=== PATIENT | male | born 1955 | race Caucasian/White ===

== ENCOUNTER 2018-06-20 19:27 | Inpatient (IN) ==
[~2018-06-20 19:27] MED LIST: Iohexol 350 MG/ML 100 ML Vial (for Cath Lab) IVCONTRAST ONE; Iohexol 350 MG/ML 50 ML Vial (for Cath Lab) IVCONTRAST ONE
[2018-06-20] MEDS ORDERED: Heparin 10,000 UNITS/10 ML Vial (for IV use) IV.PUSH STA (19:41)
[2018-06-20] MEDS ORDERED: Morphine Inj 4 MG/ML Vial IV.PUSH ONE ×2 (19:44→20:07)
[2018-06-20] MEDS ORDERED: Sod Chloride 0.9% Inj 1,000 ML IV.SIG SCH (19:45)
--- NOTE | 2018-06-20 19:49 | ED ---
HPI General Chief Complaint: Chest Pain Stated Complaint: Chest pain/Cardiac Time Seen by Provider: 06/20/18 19:39 Source: patient Mode of arrival: ambulatory Limitations: no limitations History of Present Illness MD complaint: chest pain STEMI Alert: Yes Onset (ago): hour(s) (1) Time: 18:45 Duration: constant Onset: during rest Pain location: substernal Severity: moderate Severity scale (1-10): 10 Quality: sharp Pain radiation: none Relieving factors: nothing Exacerbating factors: nothing Context: other (CP about a week ago evaluated at an outside hospital) Associated symptoms: other (none) Treatments prior to arrival chest pain: other (Tylenol and Lortab) Related Data Allergies Allergy/AdvReac Type Severity Reaction Status Date / Time No Known Allergies Allergy Verified 06/20/18 19:44 Review of Systems ROS: all other systems reviewed are negative [facility] Medical History Medical History Rotator cuff disorder (Acute) Surgical History Surgical History H/O cervical spine surgery (Acute) Social History Social History Substance History: No History of Abuse Second Hand Smoke Exposure: No Smoking Status: Never smoker How Often Do You Have a Drink Containing Alcohol: 2 to 4 times a month Recent Travel in [facility] within the Last 8 Weeks: No Recent Out of Country Travel within the Last 8 Weeks: No Immunization History Tetanus Immunization: Unsure Hx Influenza Vaccine This Season: No Exam Const General: cooperative, healthy appearing and comfortable Orientation: alert, awake and oriented x3 HENMT Head: normal to inspection, normocephalic and atraumatic Eyes General: appearance normal, both eyes and all related structures Conjunctivae: conjunctivae normal Sclera: sclerae normal EOM: EOM intact bilaterally Neck Neck: normal visual inspection and full ROM Chest Chest: normal inspection of the chest Resp Effort & Inspection: normal respiratory effort and able to speak in complete sentences Auscultation: clear to auscultation bilaterally Cardio Rate: regular rate Rhythm: regular rhythm Heart Sounds: S1 normal and S2 normal GI Inspection: normal to inspection Palpation: soft Back/Spine/Pelvis Cervical Spine: cervical ROM normal Thoracic/Lumbar Spine: thoraco-lumbar ROM normal Skin General: no rashes or lesions noted, turgor normal and dry skin Neuro General: alert, awake, oriented x3, moves all extremities and CN's II-XI intact bilaterally Extrem General: normal to inspection, full ROM and no pedal edema Psych Appearance: grossly normal Mental Status: mental status grossly normal Speech and Movement: speech and movement normal Mood: congruent mood Affect: normal affect Attitude: cooperative Thought Process: normal Thought Content: normal Judgment: judgment good Course Consultations Consultation #1: Dr. Keys will meet him in the director of cardiac cath lab Time: 19:47 Initial Documented Vital Signs Temperature 98 F 06/20/18 19:38 Pulse Rate 112 H 06/20/18 19:38 Respiratory Rate 18 06/20/18 19:38 Blood Pressure 184/110 H 06/20/18 19:38 Pulse Oximetry 100 06/20/18 19:38 Last Documented Vital Signs Temperature 98 F 06/20/18 19:38 Pulse Rate 107 H 06/20/18 20:04 Respiratory Rate 18 06/20/18 20:04 Blood Pressure 183/108 H 06/20/18 20:04 Pulse Oximetry 98 06/20/18 20:04 Critical Care Time Critical Care Time: Yes Total Critical Care Time: 30 Attestation: Time to perform other separately billable procedures was not included in the critical care time. My time did not include minutes spent treating any other patients simultaneously or on activities that did not directly contribute to the patient's treatment. The services I provided to this patient were to treat and/or prevent clinically significant deterioration due to I provided critical care services requiring my management, as noted below: Chart data review, documentation time, medication orders and management, vital sign assessments/reviewing monitor data, ordering and reviewing lab tests, ordering and interpreting/reviewing x-rays and diagnostic studies, care of the patient and discussion of the patient with the admitting physicians Quality Measure Queries AMI Clinical Trial Participant: No ECG initial impression date: 06/20/18 ECG initial impression time: 19:35 Medical Decision Making MDM Narrative Medical decision making narrative: This patient presents with chief complaint of chest pain which started 1 hour ago. Chest pain is substernal. He denies any associated symptoms. He states that he has taken Tylenol and a Lortab with no relief of his symptoms. He states that he was seen at an outside hospital about a week ago for chest pain. He had a negative initial workup and was discharged home. He denies any chronic medical history such as hypertension or hyperlipidemia. He states that he is a non-smoker. He denies the use of illicit drugs. His initial EKG shows an inferior VA. A STEMI alert was called. He will be taken emergently to the [facility]. He is being treated in the emergency department with aspirin, heparin and morphine. Since this is an inferior VA, nitroglycerin is being withheld. I will defer a beta-eliseo to Dr. Keys. Medical Screen Exam Complete: Yes Emergency Medical Condition: Yes Differential Diagnosis Differential Diagnosis: Differential diagnosis of chest pain includes but is not limited to musculoskeletal pain, pulmonary embolism, acute coronary syndrome , pneumonia, pleurisy Lab Data Lab results reviewed: Yes I reviewed the patient's lab results. Result diagrams: 06/20/18 19:40 Lab Results 06/20/18 06/20/18 06/20/18 Range/Units 19:40 19:40 19:40 WBC 11.5 H (4.0-11.0) th/mm3 RBC 5.62 (4.50-5.90) mil/mm3 Hgb 17.1 H (13.0-17.0) gm/dL POC Hgb (Calc) 17.3 H (13.0-17.0) g/dL Hct 51.0 (39.0-51.0) % POC Hct 51.0 (39-51.0) % MCV 90.7 (80.0-100.0) fL MCH 30.4 (27.0-34.0) pg MCHC 33.5 (32.0-36.0) % RDW 13.4 (11.6-17.2) % Plt Count 251 (150-450) th/mm3 MPV 8.5 (7.0-11.0) fL Neut % (Auto) 64.9 (16.0-70.0) % Lymph % (Auto) 22.6 (9.0-44.0) % Citrus % (Auto) 9.7 H (0.0-8.0) % Eos % (Auto) 2.3 (0.0-4.0) % Baso % (Auto) 0.5 (0.0-2.0) % Neut # (Auto) 7.5 (1.8-7.7) th/mm3 Lymph # (Auto) 2.6 (1.0-4.8) th/mm3 Citrus # (Auto) 1.1 H (0.0-0.9) th/mm3 Eos # (Auto) 0.3 (0.0-0.4) th/mm3 Baso # (Auto) 0.1 (0.0-0.2) th/mm3 WBC Differential . Differential Comment Auto diff final PT 10.0 (9.8-11.6) sec INR 1.0 Ratio APTT 26.9 (24.3-30.1) sec POC Sodium 142 (137-144) mmol/L POC Potassium 3.6 (3.6-5.0) mmol/L POC Chloride 102 (102-111) mmol/L POC BUN 12 (5-21) mg/dL POC Creatinine 0.9 (0.6-1.3) mg/dL POC Glucose 123 H (68-110) mg/dL Calcium 8.6 (8.5-10.1) mg/dL Magnesium 2.0 (1.5-2.5) mg/dL B-Natriuretic Peptide (0-100) pg/mL 06/20/18 Range/Units 19:40 WBC (4.0-11.0) th/mm3 RBC (4.50-5.90) mil/mm3 Hgb (13.0-17.0) gm/dL POC Hgb (Calc) (13.0-17.0) g/dL Hct (39.0-51.0) % POC Hct (39-51.0) % MCV (80.0-100.0) fL MCH (27.0-34.0) pg MCHC (32.0-36.0) % RDW (11.6-17.2) % Plt Count (150-450) th/mm3 MPV (7.0-11.0) fL Neut % (Auto) (16.0-70.0) % Lymph % (Auto) (9.0-44.0) % Citrus % (Auto) (0.0-8.0) % Eos % (Auto) (0.0-4.0) % Baso % (Auto) (0.0-2.0) % Neut # (Auto) (1.8-7.7) th/mm3 Lymph # (Auto) (1.0-4.8) th/mm3 Citrus # (Auto) (0.0-0.9) th/mm3 Eos # (Auto) (0.0-0.4) th/mm3 Baso # (Auto) (0.0-0.2) th/mm3 WBC Differential Differential Comment PT (9.8-11.6) sec INR Ratio APTT (24.3-30.1) sec POC Sodium (137-144) mmol/L POC Potassium (3.6-5.0) mmol/L POC Chloride (102-111) mmol/L POC BUN (5-21) mg/dL POC Creatinine (0.6-1.3) mg/dL POC Glucose (68-110) mg/dL Calcium (8.5-10.1) mg/dL Magnesium (1.5-2.5) mg/dL B-Natriuretic Peptide 38 (0-100) pg/mL Imaging Data Radiologist's impression: Chest X-Ray 06/20/18 19:41 CONCLUSION: Question of mild perivascular pulmonary venous congestion. ECG Data EKG Prior to Arrival: No Attestation: I personally reviewed and interpreted this ECG as follows: (NSR. rate 72. inferior STEMI.) Discharge Plan Discharge Disposition Patient Disposition: 30 Still Patient Discharge Details Diagnosis: Acute inferior myocardial infarction Physicians Team ED Provider: Leslie Braden Primary Care Provider: UNKNOWN, Discharge Instructions Patient Printed Instructions: Chest Pain (ED) Status ED Status: With Doctor
[2018-06-20 20:05] LABS: Baso # (Auto) 0.1 th/mm3 (0.0-0.2); Baso % (Auto) 0.5 % (0.0-2.0); Eos # (Auto) 0.3 th/mm3 (0.0-0.4); Eos % (Auto) 2.3 % (0.0-4.0); Hemoglobin 17.1 gm/dL (13.0-17.0); Lymph # (Auto) 2.6 th/mm3 (1.0-4.8); Lymph % (Auto) 22.6 % (9.0-44.0); Mean Corpuscular HGB Conc 33.5 % (32.0-36.0); Mean Corpuscular Hemoglobin 30.4 pg (27.0-34.0); Mean Corpuscular Volume 90.7 fL (80.0-100.0); Mean Platelet Volume 8.5 fL (7.0-11.0); Mono # (Auto) 1.1 th/mm3 (0.0-0.9); Mono % (Auto) 9.7 % (0.0-8.0); Neut # (Auto) 7.5 th/mm3 (1.8-7.7); Neut % (Auto) 64.9 % (16.0-70.0); Platelet Count 251 th/mm3 (150-450); Red Blood Count 5.62 mil/mm3 (4.50-5.90); Red Cell Distribution Width 13.4 % (11.6-17.2); White Blood Count 11.5 th/mm3 (4.0-11.0)
--- NOTE | 2018-06-20 20:07 | XR ---
EXAM DATE: 06/20/2018 7:52 PM EDT AGE/SEX: 62 years / Male INDICATIONS: Chest pain; stemi alert. CLINICAL DATA: This is the patient's initial encounter. Patient reports that signs and symptoms have been present for 1 day and indicates a pain score of 10/10. MEDICAL/SURGICAL HISTORY: None. None. COMPARISON: . FINDINGS: The lungs are clear without infiltrate, nodule, or mass. There is no appreciable pleural effusion for technique. Heart and mediastinum are unremarkable. Question of mild perivascular pulmo nary venous congestion. CONCLUSION: Question of mild perivascular pulmonary venous congestion. Electronically signed by: Chaya Duarte MD 06/20/2018 8:05 PM EDT
[2018-06-20] MEDS ORDERED: Heparin 10,000 UNITS/10 ML Vial (for IV use) ONE (20:13)
[2018-06-20] MEDS ORDERED: Heparin/NS PF Inj 1,000 ML ONE (20:13)
[2018-06-20 20:15] LABS: Activated Partial Thrombo Time 26.9 sec (24.3-30.1)
[2018-06-20 20:16] LABS: Calcium 8.6 mg/dL (8.5-10.1)
[2018-06-20 20:24] LABS: Creatine Kinase 248 U/L (39-308)
[2018-06-20] MEDS ORDERED: fentaNYL Citrate Inj 100 MCG/2 ML Ampul ONE (20:27)
[2018-06-20] MEDS ORDERED: Tirofiban Inj 12,500 MCG/250 ML PLAST..BAG ONE (21:02)
[2018-06-20] MEDS ORDERED: Atropine Inj 1 MG/10 ML Syringe ONE (21:04)
--- NOTE | 2018-06-20 21:29 | CATHPROC ---
[email or web address] HIS Report Study Information Study Number Admission Scheduled Start Study Start [id number] Jun 20 2018 7:27PM 06/20/2018 Jun 20 2018 8:10PM [facility] Cardiac Catheterization Admit Source Facility Department Emergency department [facility] - Vacuum Frame Operator Physician and Clinical Staff Initial Rodger Padilla RN, Gertrudis Hernandez RN Recorder Angela Cardoza,RT(R) Scrub Patsy Ross,VANE TECH2 Procedures Performed Procedure Location (Site) Vessel Name Coronary Angiograms LCA Left Coronary Coronary Angiograms RCA Right Coronary L Heart Cath LV Gram-hand inj. LV LV Ventricle Stent RCA Dist Right Coronary Wire insertion Fem Art (right) Femoral Art Equipment Time Glove Stitcher Description Size Mfg Part Number Used/Scraped [id number] 20:56 [employer] WIRE, ASAHI PROWATER 180CM 180CM Used *[id number] TRANSDUCER, TRUWAVE [id number] 20:15 WALKER ZAPATA * Used W/STOCKCOCK *[id number] *[id number] *[id number] *[id number] 20:15 Codefast BLANKET,WARM AIR CCL * Used *[id number] 20:15 Codefast PACK, CCL CUSTOM * Used *[id number] 20:15 Ornis PACER PEN, SKIN DUAL W/ RULER * Used *[id number] 21:02 MEDTRONIC STENT, 3.5 12 INTEGRITY 3.5 12 Used *[id number] 20:32 Aliveshoes MEDICAL 30 APRIL INDEFLATOR Used *[id number] 20:32 Aliveshoes MEDICAL SHEATH, FR6.5 PRELUDE 11CM FR 6.5 038ACT Used *[id number] 20:15 Aliveshoes MEDICAL WIRE, 3MMJ .035 180CM 180CM Used *[id number] 20:15 NAMIC MANIFOLD, 4 PORT * Used *[id number] 20:15 NYCOMED OMNIPAQUE, 350 MG, 150ML 150ML [id number] Used Equipment Model, Serial, Lot Number and Expiration Data Description Model Number Serial Number Lot Number Expiration Date STENT, 3.5 12 INTEGRITY [id number] 11-10-2018 History: Allergies Allergy Reaction No Known Allergies History: Symptoms/Diagnosis Selection Items Chest pain History: Stress Tests Stress or Imaging Studies Performed No History: Other Current Smoker No Labs Hgb (g/dl) Hct (%) WBC (l/cumm) Platelets (thousands) 11.60-17.00 35.00-51.00 4.00-11.00 150.00-450.00 17.1 51 11.5 251 Glucose (mg/dl) BUN (mg/dl) Creatinine (mg/dl) BUN:Creatinine (1:x) 74.00-106.00 7.00-18.00 0.50-1.30 10.00-20.00 123 12 0.6 20 Na (meq/l) K (meq/l) 136.00-145.00 3.50-5.10 142 3.6 Medication Medication Total Dose (Bolus/Oral) Medication Total Dosage/Unit 1% XYLOCAINE 20 mL AGGRASTAT BOLUS 46 mL ATROPINE 1 mg EFFIENT 60 mg FENTANYL 75 mcg HEPARIN 6000 units VERSED 2 mg Medications (Bolus/Oral) Medication Time Given Dosage/Unit Administered By Reason VERSED 06/20/2018 8:50:46 PM 1 mg Hebert Lucas RN 1 mg VERSED given in lab by Hebert Lucas RN in Right Antecubital via Peripheral IV. Ordered by Rodger Medellin. FENTANYL 06/20/2018 8:51:20 PM 25 mcg Hebert Lucas RN 25 mcg FENTANYL given in lab by Hebert Lucas RN in Right Antecubital via Peripheral IV. Ordered by Rodger Valdivia. 1% XYLOCAINE 06/20/2018 8:55:06 PM 20 mL Rodger Keys 20 mL 1% XYLOCAINE given in lab by Rodger Keys in Right Groin via Subcutaneous. FENTANYL 06/20/2018 8:56:32 PM 25 mcg Yasmin Leoneinda 25 mcg FENTANYL given in lab by Gertrudis Leone RN in Right Antecubital via Peripheral IV. Ordered by Rodger Keys. VERSED 06/20/2018 8:56:59 PM 1 mg Vasu, Gertrudis 1 mg VERSED given in lab by Gertrudis Leone RN in Right Antecubital via Peripheral IV. Ordered by Rodger Sanches. HEPARIN 06/20/2018 9:00:33 PM 6000 units Hebert Lucas RN 6000 units HEPARIN given in lab by Hebert Lucas RN in Right Antecubital via Peripheral IV. Ordered by Rodger Keys. ATROPINE 06/20/2018 9:03:29 PM 1 mg Hebert Lucas RN 1 mg ATROPINE given in lab by Hebert Lucas RN in Right Antecubital via Peripheral IV. Ordered by Rodger Alberto. AGGRASTAT BOLUS 06/20/2018 9:14:14 PM 46 mL Hebert Lucas RN 46 mL AGGRASTAT BOLUS given in lab by Hebert Lucas RN in Right Antecubital via Peripheral IV. Ordered by Rodger Keys. FENTANYL 06/20/2018 9:15:22 PM 25 mcg Gertrudis Leone 25 mcg FENTANYL given in lab by Gertrudis Leone RN in Right Antecubital via Peripheral IV. Ordered by Rodger Keys. EFFIENT 06/20/2018 9:16:05 PM 60 mg Hebert Lucas RN 60 mg EFFIENT given in lab by Hebert Lucas RN via Oral. Ordered by Rodger Keys. Medication (Drip) Medication Time Given Dosage/Unit Concentration/Unit Diluent (ml) Solution AGGRASTAT DRIP 06/20/2018 9:19:29 PM 0.15 mcg/kg/min 12.5 mg 250 NaCl .9 0.15 mcg/kg/min AGGRASTAT DRIP given in lab by Hebert Lucas RN in Right Antecubital via Peripheral IV . Pump/Drip Flow = 16.7 ml/hr using NaCl .9 with a concentration of 12.5 mg in 250 ml. Ordered by Rodger Keys. IV Solutions 06/20/2018 8:16:56 PM 50 mL (IV) NaCl .9 IV Solutions given in lab by Hebert Lucas RN in Right Antecubital via Peripheral IV. Pump/Drip Flow u sing NaCl .9. Initial Case Assessment Cardiovascular Chest Pain 6 Edema Present Skin color Skin None Normal Warm Dry Circulatory - Right Pulses Dorsalis Pedis Femoral 1 2 Scale (0,1,2,3,4,d) Circulatory - Left Pulses Dorsalis Pedis Femoral 1 2 Scale (0,1,2,3,4,d) Neurological State Oriented to time-place- Alert Moves all extremities person Chronological Log Time Study Chronological Log 20:10:55 Emergency Room notified that Vacuum Frame Operator is ready. 20:16:25 Patient arrived via Bed. 20:16:27 Patient Name, D.O.B, / Armband Verified By R.N. 20:16:29 Consent signed by the physician and the patient and verified by the Vacuum Frame Operator staff. 20:16:31 Pre-op and post- op instructions given; patient acknowledges understanding of instruction s. 20:16:41 Presedation assessment performed by Vacuum Frame Operator RN. 20:16:48 Patient has been NPO for Less than 6Hrs. 20:16:48 Skin Breakdown- none per pt 20:16:49 Patient Warmer Placed on the Table. 20:16:50 Disposable Defibrillator Pads Placed On Patient. 20:16:54 Vickie Prominences Protected 20:16:54 A # 20 IV was noted in the Antecubital (left). Grade = 0 20:16:55 A # 20 IV was noted in the Antecubital (right). Grade = 0 20:16:56 IV Solutions given in lab by Lance GANNON, Hebert in Right Antecubital via Peripheral IV. Pump /Drip Flow using NaCl .9. 20:16:59 History and physical on the chart or being dictated. Assessment: Initial Case, Chest Pain=6, Edema=None, Color=Normal, Skin = Warm, Dry Right Pulses: Mike Ped=1, Femoral=2 20:16:59 Left Pulses: Mike Ped=1, Femoral=2 Neurological: State=Alert, Ox3, HORN Vitals capture started with the following parameters, Patient=Adult, Interval=5 min, Initial Pr kkujbn=635 mmHg, 20:20:24 Deflation Rate=5 mmHg, Cuff placed on Left Arm 20:22:18 OJ=387 bpm, QOMP=648/106 mmhg, UwX3=830 %, Resp=26 B/min 20:26:09 OP=933 bpm, UDGG=932/126 mmhg, SpO2=99.0 %, Resp=15 B/min 20:27:15 Bilateral groins prepped with 2% chlorhexidine, and draped after a 3 minute waiting time. 20:28:53 paged 20:29:13 MD responded 20:31:00 Pressure channel 1 zeroed. 20:31:08 SQ=243 bpm, VLEN=105/117 mmhg, ByP6=396.0 %, Resp=15 B/min 20:32:48 Reference ECG taken 20:36:10 QL=163 bpm, ISKW=315/116 mmhg, SpO2=99.0 %, Resp=11 B/min 20:41:09 PR=989 bpm, SRSX=493/111 mmhg, SpO2=99.0 %, Resp=10 B/min 20:42:50 NIBP STAT measurement started. 20:43:34 HR=61 bpm, NSIE=932/77 mmhg, SpO2=98.0 %, Resp=7 B/min 20:46:36 UL=726 bpm, XKEC=659/115 mmhg, KfJ8=949.0 %, Resp=5 B/min 20:50:36 MD arrived. 20:50:46 1 mg VERSED given in lab by Hebert Lucas RN in Right Antecubital via Peripheral IV. Ordered by Rodger Keys. 20:51:11 HR=80 bpm, BHDJ=077/88 mmhg, SpO2=99.0 %, Resp=15 B/min 20:51:20 25 mcg FENTANYL given in lab by Hebert Lucas RN in Right Antecubital via Peripheral IV. Ord ered by Rodger Keys. Time Out. Correct patient, correct procedure, correct physician, labs, allergies, and equipment verified with lab rn 20:54:37 team present. Fire risk assesment completed (see hard stop sheet for coding). Time Out Conc urred by and individual staff in procedure. 20:55:04 Case Start 20:55:06 20 mL 1% XYLOCAINE given in lab by Rodger Keys in Right Groin via Subcutaneous. 20:56:02 HR=63 bpm, FDRO=960/94 mmhg, SpO2=97 %, Resp=20 B/min 20:56:14 NIBP STAT measurement started. 20:56:23 Access site was Right Femoral Artery. 25 mcg FENTANYL given in lab by Gertrudis Leone, JAGDEEP in Right Antecubital via Peripheral IV. Orde red by Massimo, 20:56:32 Rodger. 20:56:42 A SHEATH, FR6.5 PRELUDE 11CM FR 6.5 was advanced into the Fem Art (right) using the Percuta neous technique. 20:56:49 VB=121 bpm, OQLD=100/109 mmhg, SpO2=98.0 %, Resp=19 B/min 20:56:59 1 mg VERSED given in lab by Gertrudis Leone RN in Right Antecubital via Peripheral IV. Orde red by Rodger Keys. 20:57:29 Activated Clotting Time Drawn A JR 4.0 GUIDE CATHETER FR 6 was advanced over a wire. OMNIPAQUE, 350 MG, 150ML 150ML was used for 20:57:32 injections. Recorded Pressure: Ao, KQ=085, Condition=Condition 1 20:57:59 (Aorta) Ao 155/100/126 20:58:31 The RCA was injected and visualized at various angles. OMNIPAQUE, 350 MG, 150ML 150ML used . 21:00:06 ACT (Normal Range 90-180) = 159 21:00:19 A WIRE, ASAHI PROWATER 180CM 180CM was inserted via Fem Art (right). 6000 units HEPARIN given in lab by Hebert Lucas RN in Right Antecubital via Peripheral IV. Dutch red by Massimo, 21:00:33 Rodger. 21:01:05 LY=086 bpm, JVUK=206/112 mmhg, SpO2=97.0 %, Resp=10 B/min An STENT, 3.5 12 INTEGRITY 3.5 12 Bare Metal Stent was inserted through a JR 4.0 GUIDE CATHETER FR 6 over a 21:01:47 WIRE, ASAHI PROWATER 180CM 180CM. A STENT, 3.5 12 INTEGRITY 3.5 12 was deployed using a 30 APRIL INDEFLATOR at 11 atmospheres for 1 6 seconds in 21:02:22 the RCA Dist. 21:03:18 Delivery device removed 21:03:29 1 mg ATROPINE given in lab by Hebert Lucas RN in Right Antecubital via Peripheral IV. Order ed by Rodger Keys. 21:04:06 Wire removed 21:04:10 Catheter was removed A JR 4.0 INFINITI CATHETER FR 4 was advanced over a wire. OMNIPAQUE, 350 MG, 150ML 150ML was us ed for 21:04:48 injections. Recorded Pressure: LV, RC=673, Condition=Condition 1 21:05:30 (Left Ventricle) LV 97/6/8 21:05:35 The LV was manually injected with 10 cc's and visualized. OMNIPAQUE, 350 MG, 150ML 150ML us ed. Recorded Pressure: LV, Ao, SP=807, Condition=Condition 1 21:05:46 (Left Ventricle) LV 95/4/7, (Aorta) Ao 95/68/81 21:06:00 Catheter was removed 21:06:04 XA=302 bpm, ETDX=247/73 mmhg, SpO2=98.0 %, Resp=15 B/min A JL 4.0 INFINITI CATHETER FR 4 was advanced over a wire. OMNIPAQUE, 350 MG, 150ML 150ML was us ed for 21:06:20 injections. 21:06:40 The LCA was injected and visualized at various angles. OMNIPAQUE, 350 MG, 150ML 150ML used . 21:09:27 Catheter was removed 21:11:01 VX=415 bpm, RJBK=663/70 mmhg, SpO2=97.0 %, Resp=15 B/min 21:11:10 ACT (Normal Range 90-180) = 278 21:12:40 Case End (Physician broke scrub) 21:13:12 In the Fem Art (right) the SHEATH, FR6.5 PRELUDE 11CM FR 6.[address] by Rodger Medellin. 21:13:23 Sterile dressing applied to site 21:13:26 No case complications noted. 21:13:28 Cine recording checked. 21:13:30 Bedside Report will be given. 21:13:31 Implantable Device card placed in patient's chart. 21:13:35 A Left Heart Cath was performed. 46 mL AGGRASTAT BOLUS given in lab by Hebert Lucas RN in Right Antecubital via Peripheral IV. O rdered by Massimo, 21:14:14 Rodger. 25 mcg FENTANYL given in lab by Gertrudis Leone RN in Right Antecubital via Peripheral IV. Orde red by Massimo, 21:15:22 Rodger. 21:16:00 YH=179 bpm, XMTN=467/79 mmhg, SpO2=97.0 %, Resp=12 B/min 21:16:05 60 mg EFFIENT given in lab by Hebert Lucas RN via Oral. Ordered by Rodger Keys. 0.15 mcg/kg/min AGGRASTAT DRIP given in lab by Hebert Lucas RN in Right Antecubital via Periphe ral IV. Pump/Drip 21:19:29 Flow = 16.7 ml/hr using NaCl .9 with a concentration of 12.5 mg in 250 ml. Ordered by Massimo, Rodger. 21:21:03 OI=840 bpm, IVYF=868/87 mmhg, SpO2=97.0 %, Resp=20 B/min 21:22:23 Vitals capture stopped. 21:22:36 Patient moved to stretcher End Study - Contrast Media Used In Study Contrast Total Opened (mL) Total Used (mL) Total Wasted (mL) Omnipaque 150 115 35 End Study - Maximum Contrast Load Max Contrast Load (mL) 774.2 End Study - Radiation Exposure Fluoro Time (minutes) 3.1 End Study - Patient Disposition Complications Transferred To Interventional Outcome No Telemetry Bed successful
[2018-06-20] MEDS ORDERED: Misc Info for Pharmacy OTHER STA (21:39)
[2018-06-20] MEDS ORDERED: TIROFIBAN BOLUS IV.PUSH ONE (21:39)
[2018-06-20 21:46] LABS: Troponin I 0.94 ng/mL (0.02-0.05)
[2018-06-20] MEDS ORDERED: Tirofiban Inj 12,500 MCG/250 ML PLAST..BAG IV.CONT SCH (22:00)
[2018-06-20 22:04] LABS: Creatine Kinase MB 7.8 ng/mL (0.5-3.6)
--- NOTE | 2018-06-20 22:22 | MB ---
cc: Rodger Keys MD DATE: 06/20/2018 HISTORY OF PRESENT ILLNESS: José is a very pleasant 62-year-old gentleman with no significant past medical history, visiting from [place], [place], who presented to the emergency room with chest pain. He was found to have an inferior injury pattern. STEMI alert was called. Otherwise, denies any fevers, chills, cough, GI or bleeding, PND, orthopnea, syncope, or dizziness. PAST MEDICAL HISTORY: As per history of present illness. He does have a history of cervical spine surgery, knee surgery. SOCIAL HISTORY: Never smoked. Drinks alcohol 2-4 times a month. ALLERGIES: NONE. MEDICATIONS IN THE EMERGENCY ROOM: Aspirin 324 mg chewable x1, Plavix 600 mg in the ER, heparin bolus and drip. PHYSICAL EXAMINATION: VITAL SIGNS: Blood pressure 183/108, pulse of 107, respiratory rate 18, temperature 98. Sats 98% on room air. GENERAL: He is alert and oriented x3, in no acute distress. NECK: Supple. No JVD. No bruit. CARDIOVASCULAR: S1, S2. No murmurs, rubs or gallops. LUNGS: Clear to auscultation bilaterally. ABDOMEN: Soft, nontender, nondistended with positive bowel sounds. EXTREMITIES: No lower extremity edema. DIAGNOSTIC DATA: Chest x-ray shows question of mild perivascular pulmonary venous congestion. EKG shows inferior injury pattern, 2-[address] segment elevation in leads II, III, and aVF. The EKG is not entered into the computer, but I did see a copy of the 12-lead EKG. LABORATORY DATA: White count 11.5, hemoglobin 17.1, hematocrit 51.0, platelet count 251. INR 1.0. Sodium 142, potassium 3.6, chloride 102, BUN 12, creatinine 0.9, glucose 123. BNP 38. CK and troponin are pending. DIAGNOSES: 1. ST elevation myocardial infarction. 2. Hyperglycemia. 3. Polycythemia. 4. Elevated white count. DISCUSSION: The patient has received aspirin, Plavix and heparin in the ER. The plan is for emergent left heart catheterization and primary PCI. Rodger Keys MD [facility]/trung , 09:38 PM , 09:44 PM
[2018-06-20 22:40] LABS: Chol/HDL Ratio 4.61 Ratio; HDL Cholesterol 44.9 mg/dL (40.0-60.0)
--- NOTE | 2018-06-20 22:42 | MR ---
cc: Rodger Keys MD DATE: 06/20/2018 PROCEDURE PERFORMED: Left heart catheterization, left ventriculography, coronary angiography, primary direct percutaneous coronary intervention to the mid right coronary artery. INDICATIONS: STEMI, coronary artery disease. DESCRIPTION OF PROCEDURE: The patient was brought to the cardiac catheterization laboratory and prepped and draped in the usual sterile fashion. Then, 10 mL of 1% lidocaine was used to locally anesthetize the right common femoral artery and a 6 Dutch sheath placed in the right common femoral artery. A 6 Dutch JR4 guide was used to image the right coronary artery. The right coronary artery was dominant. There was an eccentric plaque in the mid segment with a stepdown and a reference vessel diameter of about 3.5 to about 2.5, followed by a 95% stenosis in the distal right coronary artery, which was then followed by about a 40% stenosis. Initial ACT was 167 and additional 60 units per kilogram of heparin was given. Final ACT was 278. A 0.014 [place] guidewire was placed into the distal right coronary artery and the distal right PDA. A 3.0 x 12 Integrity stent was delivered to the lesion site and deployed with 1 inflation at 12 atmospheres for 20 seconds. The stenosis went from 95% to 0% with TORI 3 flow. There was severe spasm proximal to the stent to about 90%. The patient had transient bradycardia and hypotension that responded well to 1 mg of atropine IV. The patient was completely chest pain free after PCI. The right posterolateral artery had mild disease in the proximal segment, up to 20% angiographically. The right PDA had no significant disease angiographically. I then used a 4 Dutch JR4 and JL4 catheter to perform left ventriculography and left coronary angiography. The LV pressure was 95/5-10. The LV appeared to be hyperdynamic, EF 65%. The inferior wall appeared to be at least mildly hypokinetic. The left main coronary artery was long with no significant obstructive disease and reference vessel diameter of probably 5 mm. The left circumflex had about a 110-degree angulation off the left main with a long 60% proximal stenosis. The first obtuse marginal vessel had a high takeoff with a reference vessel diameter of 1.75 mm and no significant obstructive disease. The second obtuse marginal vessel was a small vessel with a 1 mm reference vessel diameter and no significant disease angiographically. There was vessel tapering in the mid segment from about a 3.5 vessel down to about a 2.5 reference vessel diameter. It was difficult to determine if this was vessel tapering versus obstructive disease. Relative to the proximal segment, it appeared to be at about 50% stenosis. The third obtuse marginal vessel was a medium size vessel with a reference vessel diameter of 2.75 mm, tortuous approaching the apex with no significant disease angiographically. The fourth obtuse marginal was a small vessel with a 1.5 mm reference vessel diameter and no significant disease angiographically. The remainder of the AV groove left circumflex vessel had no significant disease angiographically. The LAD had disease up to 50% to perhaps 60% at the first diagonal artery. The LAD was transapical. The first diagonal artery was a medium size vessel with a 2.25 mm reference vessel diameter, proximal 30% to 40% stenosis. The second diagonal artery was small with a 1.0 mm reference vessel diameter vessel and no significant disease angiographically. The third diagonal artery was a medium size vessel with a reference vessel diameter of 2.5 mm and no significant disease angiographically. After the third diagonal artery, the reference vessel diameter of the LAD changes from about 2.75 down to about 1.5. Again, it was difficult to determine whether this was normal vessel tapering versus diffuse disease. There did not appear to be any focal stenosis, however, relative to the more distal vessel of this segment. There was a long segment of relative narrowing just after the third diagonal vessel to about at least 50%. CONCLUSION: 1. ST elevation myocardial infarction, culprit 95% stenosis in the distal right coronary artery, as detailed above. 2. Otherwise, at least moderate to severe 3-vessel coronary artery disease in a right dominant system, as detailed above. 3. Preserved left ventricular systolic function of 65%, at least mild hypokinesis in the inferior wall. 4. Successful direct percutaneous coronary intervention of the mid to distal right coronary artery from 95% to 0% with TORI 3 flow. 5. Spasm in the mid right coronary artery from about 50% to about 80%, suggestive of endothelial dysfunction. 6. Recommend Effient 60 mg p.o. load and then 10 mg daily for 12-15 months, aspirin 162 mg daily indefinitely, Aggrastat drip. Final ACT 278. We will treat his lipids per NCEP guidelines. I am going to hold beta blockers initially due to bradycardia and hypotension. We will also hold angiotensin-converting enzyme inhibitor initially due to the bradycardia and hypotension. MD JUANCARLOS Pickett/benjamin , 09:27 PM , 09:40 PM
[2018-06-21 03:09] LABS: Baso % (Auto) 0.4 % (0.0-2.0); Eos # (Auto) 0.1 th/mm3 (0.0-0.4); Eos % (Auto) 1.1 % (0.0-4.0); Hematocrit 43.4 % (39.0-51.0); Lymph # (Auto) 2.1 th/mm3 (1.0-4.8); Lymph % (Auto) 22.1 % (9.0-44.0); Mean Corpuscular HGB Conc 34.6 % (32.0-36.0); Mean Corpuscular Hemoglobin 31.1 pg (27.0-34.0); Mean Corpuscular Volume 89.9 fL (80.0-100.0); Mono # (Auto) 0.9 th/mm3 (0.0-0.9); Neut # (Auto) 6.4 th/mm3 (1.8-7.7); Neut % (Auto) 67.4 % (16.0-70.0); Platelet Count 210 th/mm3 (150-450); Red Blood Count 4.83 mil/mm3 (4.50-5.90); Red Cell Distribution Width 13.2 % (11.6-17.2); White Blood Count 9.6 th/mm3 (4.0-11.0)
[2018-06-21 03:42] LABS: Alanine Aminotransferase 36 U/L (12-78); Albumin 3.4 g/dL (3.4-5.0); Alkaline Phosphatase 65 U/L (45-117); Anion Gap 11 meq/L (5-15); Aspartate Aminotransferase 92 U/L (15-37); Blood Urea Nitrogen 11 mg/dL (7-18); Calcium 7.2 mg/dL (8.5-10.1); Carbon Dioxide 25.3 meq/L (21.0-32.0); Chloride 108 meq/L (98-107); Chol/HDL Ratio 4.83 Ratio; Cholesterol 178 mg/dL (120-200); Creatine Kinase 751 U/L (39-308); Glomerular Filtration Rate Greater Than 89 mL/min (>89); Glucose,Random 108 mg/dL (74-106); HDL Cholesterol 36.8 mg/dL (40.0-60.0); LDL Cholesterol,Calculated 95 mg/dL (0-99); Potassium 3.8 meq/L (3.5-5.1); Sodium 144 meq/L (136-145); Total Protein 6.7 g/dL (6.4-8.2); Triglycerides 229 mg/dL (42-150)
[2018-06-21 04:21] LABS: Creatine Kinase MB 91.3 ng/mL (0.5-3.6)
[2018-06-21 04:24] LABS: CKMB Percent 12.2 % (0.0-4.0)
--- NOTE | 2018-06-21 08:43 | P.HPIM ---
History of Present Illness Primary Care Physician: UNKNOWN Chief Complaint: chest pain History of Present Illness: patient is a 62 y/o male with no significant past medical history -other than chronic neck pain- presented to ER with chest pain. he says that he's had some chest pain for a few days but yesterday it started to get worse which made him to come to ER. pain was midsternal with no radiation and no association with nausea,vomiting, dizziness, diaphoresis or sob. he was admitted as STEMI and underwent urgent cardiac catheterization with stent placement. at the time of my evaluation he was resting comfortably with no chest pain, sob and no acute issues over night per RN. Inpatient Certification: I certify that the inpatient services were ordered in accordance with Medicare regulations governing the order. This includes certification that hospital inpatient services are reasonable and necessary and in the case of services not specified as inpatient-only under 42 CFR 419.22(n), that they are appropriately provided as inpatient services in accordance to with the 2-midnight benchmark under 43 CFR 412.3(e) Estimated Total Length of Stay (Days): 2 Plans for Post Hospital Care: Home Review of Systems All other systems reviewed negative except as stated in HPI PMFSH - History History Provided By: Patient, Family Member, Significant Other - Medical History Medical History: Medical History (Last Reviewed 06/21/18 @ 08:41 by Vivek Posadas MD) Rotator cuff disorder - Surgical History Surgical History: Surgical History (Last Reviewed 06/21/18 @ 08:41 by Vivek Posadas MD) H/O cervical spine surgery - Family History Family History: Family History (Last Updated 06/21/18 @ 08:41 by Vivek Posadas MD) Other Family history of diabetes mellitus - Tobacco History Second Hand Smoke Exposure: No Smoking Status: Never smoker - Alcohol History How Often Do You Have a Drink Containing Alcohol: 2 to 4 times a month - Substance Use History Substance History: No History of Abuse - Travel History Recent Travel in the [place] Within the Last 8 Weeks: No Recent Travel Out of the Country Within the Last 8 Weeks: No - Immunization History Tetanus Immunization: Unsure Hx Influenza Vaccine This Season: No Medications and Allergies Active Medications: Active Medications Aspirin (Aspirin Chew) 162 mg PO DAILY [facility] Carvedilol (Coreg) 3.125 mg PO BID [facility] Sodium Chloride (Ns Inj) 1,000 mls @ 30 mls/hr IV.SIG .Q24H [facility] Stop: 06/21/18 19:44 Last Infusion: 06/21/18 05:49 Dose: 150 mls/hr Tirofiban/Sodium Chloride (Aggrastat Inj) 12,500 mcg in 250 mls @ 0 mls/hr IV.CONT .Q0M [facility]; Protocol Last Infusion: 06/21/18 05:48 Dose: 0.07 mcg/kg/min, 8.37 mls/hr Prasugrel (Effient) 10 mg PO DAILY [facility] Sodium Chloride (Ns Flush) 2 ml IV.FLUSH BID [facility] Sodium Chloride (Ns Flush) 2 ml IV.FLUSH PRN PRN PRN Reason: FLUSH AFTER USING IV ACCESS Allergies Allergy/AdvReac Type Severity Reaction Status Date / Time No Known Allergies Allergy Verified 06/20/18 19:44 Home Medications Medication Instructions Recorded Confirmed Type aspirin [Aspirin Low Dose] 81 mg PO DAILY 06/20/18 06/20/18 History cetirizine [Zyrtec] 5 mg PO DAILY 06/20/18 06/20/18 History omeprazole magnesium [Prilosec OTC] 1 PO DAILY 06/20/18 History Exam Vital signs: Vital Signs 06/20/18 19:38 06/20/18 19:59 06/20/18 20:04 Temperature 98 F Pulse Rate 112 H 112 H 107 H Respiratory Rate 18 18 18 Blood Pressure 184/110 H 188/100 H 183/108 H Pulse Oximetry 100 98 06/20/18 21:32 06/20/18 21:45 06/21/18 00:00 Temperature 97.9 F Pulse Rate 116 H 118 H 103 H Respiratory Rate 16 16 Blood Pressure 140/92 H 135/93 H Pulse Oximetry 95 06/21/18 03:00 06/21/18 04:00 06/21/18 07:00 Temperature 98.4 F Pulse Rate 114 H 116 H 85 Respiratory Rate 16 Blood Pressure 151/96 H Pulse Oximetry 06/21/18 07:35 Temperature Pulse Rate Respiratory Rate Blood Pressure Pulse Oximetry 96 Intake & Output 06/20/18 06/21/18 06/21/18 18:59 06:59 18:59 Intake Total 80 / 80 Output Total 1000 / 1000 Balance -920 / -920 Weight 97.5 kg Intake: IV 80 / 80 Aggrastat Inj 12,500 mcg In 250 80 / 80 ml @ Per Protocol IV.CONT .Q0M [facility] Rx#:[id number] Output: Urine 1000 / 1000 - Constitutional no acute distress - Routine HEENT Exam Eye: Present: PERRL - Routine Neck Exam Present: supple - Routine Respiratory Exam Present: CTA bilaterally - Routine Cardiovascular Exam Present: RRR - Routine Abdominal Exam Present: soft - Routine Extremities Exam Comments: no pedal edema. - Routine Neurological Exam Present: alert, oriented X3 Results - Labs CBC & Chem 7: 06/21/18 02:36 06/21/18 02:36 Labs: Short CBC 06/20/18 06/21/18 Range/Units 19:40 02:36 WBC 11.5 H 9.6 (4.0-11.0) th/mm3 Hgb 17.1 H 15.0 D (13.0-17.0) gm/dL Hct 51.0 43.4 (39.0-51.0) % Plt Count 251 210 (150-450) th/mm3 BMP 06/20/18 06/21/18 19:40 02:36 Sodium 144 Potassium 3.8 Chloride 108 H Carbon Dioxide 25.3 BUN 11 Creatinine 0.85 Calcium 8.6 7.2 L* D Cardiac Enzymes 06/20/18 06/21/18 Range/Units 19:40 02:36 Total Creatine Kinase 248 751 H (39-308) U/L CK-MB (CK-2) 7.8 H 91.3 H (0.5-3.6) ng/mL Troponin I 0.94 H* (0.02-0.05) ng/mL Liver Function 06/21/18 Range/Units 02:36 Total Bilirubin 0.5 (0.2-1.0) mg/dL Direct Bilirubin 0.2 (0.0-0.2) mg/dL AST 92 H (15-37) U/L ALT 36 (12-78) U/L Alkaline Phosphatase 65 (45-117) U/L Albumin 3.4 (3.4-5.0) g/dL - Imaging Impressions Chest X-Ray 06/20/18 19:41 CONCLUSION: Question of mild perivascular pulmonary venous congestion. Caprini VTE Risk Assessment Caprini VTE Risk Assessment: Moderate/High Risk (score >= 2) Caprini Risk Assessment Model: Point Value = 1 Point Value = 2 Point Value = 3 Point Value = 5 Age 41-60 Minor surgery BMI > 25 kg/m2 Swollen legs Varicose veins or History of unexplained or recurrent spontaneous Oral contraceptives or hormone replacement Sepsis (< 1 month) Serious lung disease, including pneumonia (< 1 month) Abnormal pulmonary function Acute myocardial infarction Congestive heart failure (< 1 month) History of inflammatory bowel disease Medical patient at bed rest Age 61-74 Arthroscopic surgery Major open surgery (> 45 min) Laparoscopic surgery (> 45 min) Malignancy Confined to bed (> 72 hours) Immobilizing plaster cast Central venous access Age >= 75 History of VTE Family history of VTE Factor V Leiden Prothrombin [id number] Lupus anticoagulant Anticardiolipin antibodies Elevated serum homocysteine Heparin-induced thrombocytopenia Other congenital or acquired thrombophilia Stroke (< 1 month) Elective arthroplasty Hip, pelvis, or leg fracture Acute spinal cord injury (< 1 month) Prophylaxis Regimen: Total Risk Factor Score Risk Level Prophylaxis Regimen 0-1 Low Early ambulation 2 Moderate Order ONE of the following: *Sequential Compression Device (SCD) *Heparin 5000 units SQ BID 3-4 Higher Order ONE of the following medications: *Heparin 5000 units SQ TID *Enoxaparin/Lovenox 40 mg SQ daily (WT < 150 kg, CrCl > 30 mL/min) *Enoxaparin/Lovenox 30 mg SQ daily (WT < 150 kg, CrCl > 10-29 mL/min) *Enoxaparin/Lovenox 30 mg SQ BID (WT < 150 kg, CrCl > 30 mL/min) AND/OR *Sequential Compression Device (SCD) 5 or more Highest Order ONE of the following medications: *Heparin 5000 units SQ TID (Preferred with Epidurals) *Enoxaparin/Lovenox 40 mg SQ daily (WT < 150 kg, CrCl > 30 mL/min) *Enoxaparin/Lovenox 30 mg SQ daily (WT < 150 kg, CrCl > 10-29 mL/min) *Enoxaparin/Lovenox 30 mg SQ BID (WT < 150 kg, CrCl > 30 mL/min) AND *Sequential Compression Device (SCD) Assessment and Plan - Plan A/P - STEMI- s/p cardiac catheterization and stent placement on Aspirin, Effient and Coreg- will add statin. cardiology following. CT surgery consulted. -hypocalcemia- will repeat BMP today and replace as needed. Discussed Condition With: the patient and RN. Discharge Planning: when cleared by cardiology/CT surgery. H&P: Quality - VTE Deep Vein Thrombosis/Pulmonary Embolism Present on Admission: No
[2018-06-21] MEDS ORDERED: Iohexol 350 MG/ML 50 ML Vial (for Cath Lab) IVCONTRAST ONE (09:28)
[2018-06-21] MEDS ORDERED: Iohexol 350 MG/ML 100 ML Vial (for Cath Lab) IVCONTRAST ONE (09:28)
[2018-06-21 10:12] LABS: Calcium 7.8 mg/dL (8.5-10.1); Potassium 3.9 meq/L (3.5-5.1)
--- NOTE | 2018-06-21 11:18 | ECHRPT ---
Indication: CHEST PAIN CONCLUSIONS The left ventricular systolic function is low normal with an estimated ejection fraction in the rang e of 50- 55%. Normal left ventricular size and wall thickness. No regional wall motion abnormalities are present. Grade 1 diastolic dysfunction. No significant valvular heart disease noted. IVC is normal size with >50% collapse with inspiration. No pericardial effusion noted. Technically difficult study. No prior echo for comparison. BP: / HR: Rhythm: Sinus MEASUREMENTS (Male / Female) Normal Values Technical Quality:Fair 2D ECHO LV Diastolic Diameter PLAX 4.9 cm 4.2 - 5.9 / 3.9 - 5.3 cm LV Systolic Diameter PLAX 3.9 cm IVS Diastolic Thickness 1.1 cm 0.6 - 1.0 / 0.6 - 0.9 cm LVPW Diastolic Thickness 1.1 cm 0.6 - 1.0 / 0.6 - 0.9 cm LV Relative Wall Thickness 0.4 LVOT Diameter 1.8 cm LA Systolic Diameter LX 3.1 cm 3.0 - 4.0 / 2.7 - 3.8 cm LV Ejection Fraction MOD 4C 56.2 % LV Ejection Fraction 4C AL 60.4 % M-MODE Aortic Root Diameter MM 2.9 cm LA Systolic Diameter MM 3.0 cm LA Ao Ratio MM 1.0 AV Cusp Separation MM 2.1 cm DOPPLER AV Peak Velocity 152.0 cm/s AV Peak Gradient 9.2 mmHg LVOT Peak Velocity 108.0 cm/s LVOT Peak Gradient 4.7 mmHg AV Area Cont Eq pk 1.8 cm MV Area PHT 5.1 cm Mitral E Point Velocity 88.8 cm/s Mitral A Point Velocity 115.0 cm/s Mitral E to A Ratio 0.8 LV E' Lateral Velocity 7.6 cm/s Mitral E to LV E' Lateral Ratio 11.7 LV E' Septal Velocity 5.3 cm/s Mitral E to LV E' Septal Ratio 16.9 PV Peak Velocity 85.5 cm/s PV Peak Gradient 2.9 mmHg FINDINGS LEFT VENTRICLE The left ventricular systolic function is low normal with an estimated ejection fraction in the rang e of 50- 55%. Normal left ventricular size. Wall thickness is normal. No regional wall motion abnormalities are present. Grade 1 diastolic dysfunction. RIGHT VENTRICLE Normal right ventricular size and systolic function. LEFT ATRIUM The left atrial size is normal. RIGHT ATRIUM The right atrial size is normal. ATRIAL SEPTUM Normal atrial septal thickness without atrial level shunting by limited color doppler interrogation. AORTA The aortic root and proximal ascending aorta are normal in size on limited imaging. MITRAL VALVE Structurally normal mitral valve. Trace mitral valve regurgitation. AORTIC VALVE Trileaflet aortic valve. No aortic valve stenosis or regurgitation. TRICUSPID VALVE Structurally normal tricuspid valve. No tricuspid valve stenosis or regurgitation. PULMONARY VALVE The pulmonary valve is not well visualized. VESSELS The inferior vena cava is normal in size. PERICARDIUM No pericardial effusion. Sandy Kraft MD (Electronically Signed) Final Date:21 June 2018 11:17
--- NOTE | 2018-06-21 12:12 | MB ---
cc: Monika Encarnacion MD DATE: 06/21/2018 HISTORY OF PRESENT ILLNESS: This 62-year-old male presented to the emergency room with chest pain. He had elevation in his inferior leads. A STEMI alert was called. He underwent cardiac catheterization by Dr. Keys which showed an EF of 65%. The RCA had a mid lesion of 95%, the circumflex 65%, the mid distal LAD 60%. We were consulted to evaluate because of multivessel disease. He did undergo PCI and stent placement of the RCA with good TORI flow. He has since been loaded with Plavix 600 mg, 60 mg of Effient, and is now being treated with Effient and aspirin and beta eliseo. PAST MEDICAL HISTORY: He is relatively healthy other than some cervical spine surgery, right knee surgery. ALLERGIES: NO KNOWN ALLERGIES. HOME MEDICATIONS: 1. Omeprazole. 2. Sertraline. 3. Aspirin. FAMILY HISTORY: Noncontributory. SOCIAL HISTORY: . Drinks alcohol 2-4 times a month. No tobacco. REVIEW OF SYSTEMS: GENERAL: No night sweats, fever, heat and cold intolerance. SKIN: No psoriasis, itching or hives. HEENT: No blurred vision, hearing loss. RESPIRATORY: Positive for shortness of breath. CARDIOVASCULAR: As above. GASTROINTESTINAL: No diarrhea or vomiting. GENITOURINARY: No burning, frequency, urgency. CENTRAL NERVOUS SYSTEM: No history of TIA, CVA or seizure disorder. ENDOCRINOLOGY: No history of diabetes or hypothyroidism. Physical examination: VITAL SIGNS: Blood pressure 150/90, heart rate 83, afebrile on room air. GENERAL: The patient is awake, alert, in no acute distress. HEENT: Head is normocephalic, atraumatic. Pupils equal and reactive. Oral mucosa pink, moist. NECK: Supple. No JVD. HEART: Heart sounds S1, S2. Regular rate and rhythm. No audible rubs, murmurs, or gallops. LUNGS: Clear to auscultation. No wheezes, rales or rhonchi. ABDOMEN: Soft, nontender. No masses or organomegaly. EXTREMITIES: No cyanosis, clubbing, or edema. LABORATORY WORK: Shows hemoglobin 15, hematocrit of 43, white cell count of 9.6, platelet count of 210. Sodium 144, potassium 3.8, BUN of 11, creatinine 0.85. Troponin 0.94. EKG as above. IMPRESSION: This is a 62-year-old male with an inferior wall ST segment myocardial infarction, status post percutaneous coronary intervention with stent, Integrity 3.0 mm x 12 mm stent placement. Also loaded with Plavix and Effient. PLAN: At this time, no need for cardiothoracic surgery. We have got in touch with the criminology teacher who will follow him, Dr. Christiano Shah in [place], [place], and the patient will obtain a followup appointment. We will also faxed the records to them. Dictated by LOGAN Teixeira I have seen and evaluated this patient personally on 06/21/18 including the history and physical examination. MD RACHELE Pierre/fabio , 11:03 AM , 11:12 AM VANESSA
--- NOTE | 2018-06-21 14:42 | P.PNCA ---
Subjective Interval history: alert in nad Medications and Allergies Active Medications: Active Medications Aspirin (Aspirin Chew) 162 mg PO DAILY [facility] Last Admin: 06/21/18 08:53 Dose: 162 mg Atorvastatin Calcium (Lipitor) 40 mg PO [facility] Carvedilol (Coreg) 6.25 mg PO BID [facility] Last Admin: 06/21/18 10:52 Dose: Not Given Sodium Chloride (Ns Inj) 1,000 mls @ 30 mls/hr IV.SIG .Q24H [facility] Stop: 06/21/18 19:44 Last Infusion: 06/21/18 05:49 Dose: 150 mls/hr Tirofiban/Sodium Chloride (Aggrastat Inj) 12,500 mcg in 250 mls @ 0 mls/hr IV.CONT .Q0M [facility]; Protocol Last Infusion: 06/21/18 05:48 Dose: 0.07 mcg/kg/min, 8.37 mls/hr Prasugrel (Effient) 10 mg PO DAILY [facility] Last Admin: 06/21/18 08:54 Dose: 10 mg Sodium Chloride (Ns Flush) 2 ml IV.FLUSH BID [facility] Last Admin: 06/21/18 08:54 Dose: 2 ml Sodium Chloride (Ns Flush) 2 ml IV.FLUSH PRN PRN PRN Reason: FLUSH AFTER USING IV ACCESS Allergies Allergy/AdvReac Type Severity Reaction Status Date / Time No Known Allergies Allergy Verified 06/20/18 19:44 Home Medications Medication Instructions Recorded Confirmed Type aspirin [Aspirin Low Dose] 81 mg PO DAILY 06/20/18 06/20/18 History cetirizine [Zyrtec] 5 mg PO DAILY 06/20/18 06/20/18 History omeprazole magnesium [Prilosec OTC] 1 PO DAILY 06/20/18 History Physical Exam Vital signs: Vital Signs 06/20/18 19:38 06/20/18 19:59 06/20/18 20:04 Temperature 98 F Pulse Rate 112 H 112 H 107 H Respiratory Rate 18 18 18 Blood Pressure 184/110 H 188/100 H 183/108 H Pulse Oximetry 100 98 06/20/18 21:32 06/20/18 21:45 06/21/18 00:00 Temperature 97.9 F Pulse Rate 116 H 118 H 103 H Respiratory Rate 16 16 Blood Pressure 140/92 H 135/93 H Pulse Oximetry 95 06/21/18 03:00 06/21/18 04:00 06/21/18 07:00 Temperature 98.4 F Pulse Rate 114 H 116 H 85 Respiratory Rate 16 Blood Pressure 151/96 H Pulse Oximetry 06/21/18 07:35 06/21/18 08:00 06/21/18 10:50 Temperature 98.3 F Pulse Rate 116 H 83 Respiratory Rate 18 Blood Pressure 145/116 H Pulse Oximetry 96 98 06/21/18 11:21 Temperature 98.6 F Pulse Rate 87 Respiratory Rate 19 Blood Pressure 159/103 H Pulse Oximetry Intake & Output 06/20/18 06/21/18 06/21/18 18:59 06:59 18:59 Intake Total 80 / 80 Output Total 1000 / 1000 Balance -920 / -920 Weight 97.5 kg Intake: IV 80 / 80 Aggrastat Inj 12,500 mcg In 250 80 / 80 ml @ Per Protocol IV.CONT .Q0M [facility] Rx#:[id number] Output: Urine 1000 / 1000 Results 06/21/18 02:36 06/21/18 09:25 Cardiac Enzymes 06/20/18 06/20/18 06/21/18 Range/Units 19:40 19:40 02:36 AST 92 H (15-37) U/L CK-MB (CK-2) 7.8 H 91.3 H (0.5-3.6) ng/mL Troponin I 0.94 H* (0.02-0.05) ng/mL B-Natriuretic Peptide 38 (0-100) pg/mL Coagulation 06/20/18 06/20/18 Range/Units 19:40 19:40 PT 10.0 (9.8-11.6) sec APTT 26.9 (24.3-30.1) sec B-Natriuretic Peptide 38 (0-100) pg/mL Lipids 06/20/18 06/21/18 Range/Units 19:40 02:36 Triglycerides 186 H 229 H (42-150) mg/dL Cholesterol 207 H 178 (120-200) mg/dL HDL Cholesterol 44.9 36.8 L (40.0-60.0) mg/dL Cholesterol/HDL Ratio 4.61 4.83 Ratio CBC 06/20/18 06/21/18 Range/Units 19:40 02:36 WBC 11.5 H 9.6 (4.0-11.0) th/mm3 RBC 5.62 4.83 (4.50-5.90) mil/mm3 Hgb 17.1 H 15.0 D (13.0-17.0) gm/dL Hct 51.0 43.4 (39.0-51.0) % Plt Count 251 210 (150-450) th/mm3 Neut # (Auto) 7.5 6.4 (1.8-7.7) th/mm3 Lymph # (Auto) 2.6 2.1 (1.0-4.8) th/mm3 [place] # (Auto) 1.1 H 0.9 (0.0-0.9) th/mm3 Eos # (Auto) 0.3 0.1 (0.0-0.4) th/mm3 Baso # (Auto) 0.1 0.0 (0.0-0.2) th/mm3 Comprehensive Metabolic Panel 06/20/18 06/21/18 06/21/18 Range/Units 19:40 02:36 09:25 Sodium 144 141 (136-145) meq/L Potassium 3.8 3.9 (3.5-5.1) meq/L Chloride 108 H 108 H (98-107) meq/L Carbon Dioxide 25.3 27.0 (21.0-32.0) meq/L BUN 11 11 (7-18) mg/dL Creatinine 0.85 0.92 (0.60-1.30) mg/dL Calcium 8.6 7.2 L* D 7.8 L (8.5-10.1) mg/dL Direct Bilirubin 0.2 (0.0-0.2) mg/dL Indirect Bilirubin 0.3 (0.0-0.8) mg/dL AST 92 H (15-37) U/L ALT 36 (12-78) U/L Alkaline Phosphatase 65 (45-117) U/L Total Protein 6.7 (6.4-8.2) g/dL Albumin 3.4 (3.4-5.0) g/dL Intake and Output 06/20/18 06/21/18 06/21/18 22:59 06:59 14:59 Intake Total 80 / 80 Output Total 1000 / 1000 Balance -920 / -920 Intake: IV 80 / 80 Aggrastat Inj 12,500 mcg In 250 80 / 80 ml @ Per Protocol IV.CONT .Q0M [facility] Rx#:[id number] Output: Urine 1000 / 1000 Other: Weight 92.986 kg 97.5 kg - Imaging and Cardiology Imaging: Impressions Chest X-Ray 06/20/18 19:41 CONCLUSION: Question of mild perivascular pulmonary venous congestion. Assessment and Plan - Assessment (1) ST elevation (STEMI) myocardial infarction Code(s): I21.3 - ST elevation (STEMI) myocardial infarction of unspecified site Status: Acute (2) CAD (coronary artery disease) Code(s): I25.10 - Atherosclerotic heart disease of [place] coronary artery without angina pectoris Status: Acute (3) Acute inferior myocardial infarction Code(s): I21.19 - ST elevation (STEMI) myocardial infarction involving other coronary artery of inferior wall Status: Acute - Plan 1.) CAD - pod # 1 primary pci bms mid rca, assymptomatic, continue aspirin, effient, add coreg, altace, started on lipitor, seen by Dr Encarnacion, dc in am if stable and assymptomatic, ok to transfer to sdu Progress Note: Quality - AMI Clinical Trial Participant: No
--- NOTE | 2018-06-21 18:31 | ECG ---
Date Performed: 06/21/2018 Time Performed: 05:25:08 PTAGE: 62 years EKG: Sinus tachycardia Inferior infarct - age undetermined Abnormal ECG NO PREVIOUS TRACING DOCTOR: Anai Gonzalez Interpretating Date/Time 06/21/2018 18:29:49
--- NOTE | 2018-06-21 18:36 | ECG ---
Date Performed: 06/20/2018 Time Performed: 19:33:07 PTAGE: 62 years EKG: Sinus rhythm WITH MARKED SINUS ARRHYTHMIA MARKED ST ELEVATION, CONSIDER INFERIOR INJURY ACUTE VT NO PREVIOUS TRACING DOCTOR: Anai Gonzalez Interpretating Date/Time 06/21/2018 18:33:02
[2018-06-22 04:31] VITALS: RESP 16
[2018-06-22 05:36] LABS: Albumin 3.6 g/dL (3.4-5.0)
[2018-06-22 05:38] LABS: Total Protein 7.2 g/dL (6.4-8.2)
--- NOTE | 2018-06-22 07:59 | P.PNIM ---
Subjective Interval history: f/u; STEMI in no acute distress. no chest pain, sob or dizziness. d/w the RN and no acute issues over night. Physical Exam Vital signs: Vital Signs 06/21/18 08:00 06/21/18 10:50 06/21/18 11:21 Temperature 98.3 F 98.6 F Pulse Rate 116 H 83 87 Respiratory Rate 18 19 Blood Pressure 145/116 H 159/103 H Pulse Oximetry 98 06/21/18 14:42 06/21/18 14:51 06/21/18 19:00 Temperature 98.3 F Pulse Rate 85 83 89 Respiratory Rate 20 Blood Pressure 135/83 Pulse Oximetry 06/21/18 20:00 06/21/18 23:00 06/22/18 00:00 Temperature 99.2 F 98.9 F Pulse Rate 89 81 82 Respiratory Rate 18 18 Blood Pressure 138/88 153/89 H Pulse Oximetry 95 96 06/22/18 03:00 06/22/18 04:00 Temperature 98.7 F Pulse Rate 72 83 Respiratory Rate 16 Blood Pressure 111/65 Pulse Oximetry 96 Intake & Output 06/21/18 06/22/18 06/22/18 18:59 06:59 18:59 Intake Total 240 / 240 2420 / 2420 Output Total 250 / 250 Balance -250 / -250 240 / 240 2420 / 2420 Weight 97.5 kg Intake: IV 2420 / 2420 Aggrastat Inj 12,500 mcg In 250 170 / 170 ml @ Per Protocol IV.CONT .Q0M [facility] Rx#:[id number] Oral 240 / 240 Output: Urine 250 / 250 Other: # Voids 2 - Constitutional no acute distress - Routine Respiratory Exam Present: CTA bilaterally - Routine Cardiovascular Exam Present: RRR - Routine Abdominal Exam Present: soft - Routine Extremities Exam Comments: no pedal edema. - Routine Neurological Exam Present: alert, oriented X3 Results - Labs CBC & Chem 7: 06/21/18 02:36 06/21/18 09:25 Laboratory Results - last 24 hr 06/21/18 06/22/18 09:25 04:14 Sodium 141 Potassium 3.9 Chloride 108 H Carbon Dioxide 27.0 Anion Gap 6 BUN 11 Creatinine 0.92 Estimated GFR 84 L Random Glucose 111 H Calcium 7.8 L Total Bilirubin 0.6 Direct Bilirubin 0.1 Indirect Bilirubin 0.5 AST 78 H ALT 40 Alkaline Phosphatase 66 Total Protein 7.2 Albumin 3.6 Assessment and Plan - Plan A/P - STEMI- s/p cardiac catheterization and stent placement on Aspirin, Effient,Ramipril and Coreg,and statin. cardiology following. CT surgery consulted and no surgical intervention recommended at this time. Discharge Planning: likely dc home later today after seen and cleared by cardiology. see med list. f/u; pcp and cardiology. d/w the patient and RN. Progress Note: Quality - AMI Clinical Trial Participant: No
[2018-06-22 08:00] VITALS: O2SAT 95
--- NOTE | 2018-06-22 08:03 | P.DS ---
Date of admission: 06/20/18 20:43 Primary care physician: UNKNOWN Brief History from admission: patient is a 62 y/o male with no significant past medical history -other than chronic neck pain- presented to ER with chest pain. he says that he's had some chest pain for a few days but yesterday it started to get worse which made him to come to ER. pain was midsternal with no radiation and no association with nausea,vomiting, dizziness, diaphoresis or sob. he was admitted as STEMI and underwent urgent cardiac catheterization with stent placement. at the time of my evaluation he was resting comfortably with no chest pain, sob and no acute issues over night per RN. DS: Medications - Discharge Medications Prescriptions: atorvastatin 40 mg PO HS 30 Days #30 tab carvedilol [Coreg] 6.25 mg PO BID 30 Days #120 tab prasugrel [Effient] 10 mg PO DAILY 30 Days #30 tab ramipril 2.5 mg PO DAILY 30 Days #30 cap DS: Summary Hospital Course: patient was admitted with STEMI- he underwent urgent cardiac catheterization and stent placement. he was evaluated by CT surgery with no surgical intervention at this time. he will have a f/u with his pcp and dermatology nurse. - Time Spent with Patient Total time spent providing and/or coordinating discharge services: Less than 30 minutes - Quality: AMI Clinical Trial Participant: No - Quality: VTE Deep Vein Thrombosis/Pulmonary Embolism Present on Admission: No Exam Vital signs: Vital Signs 06/21/18 10:50 06/21/18 11:21 06/21/18 14:42 Temperature 98.6 F Pulse Rate 83 87 85 Respiratory Rate 19 Blood Pressure 159/103 H Pulse Oximetry 06/21/18 14:51 06/21/18 19:00 06/21/18 20:00 Temperature 98.3 F 99.2 F Pulse Rate 83 89 89 Respiratory Rate 20 18 Blood Pressure 135/83 138/88 Pulse Oximetry 95 06/21/18 23:00 06/22/18 00:00 06/22/18 03:00 Temperature 98.9 F Pulse Rate 81 82 72 Respiratory Rate 18 Blood Pressure 153/89 H Pulse Oximetry 96 06/22/18 04:00 06/22/18 07:56 Temperature 98.7 F 98 F Pulse Rate 83 80 Respiratory Rate 16 16 Blood Pressure 111/65 138/86 Pulse Oximetry 96 95 Intake & Output 06/21/18 06/22/18 06/22/18 18:59 06:59 18:59 Intake Total 240 / 240 2420 / 2420 Output Total 250 / 250 Balance -250 / -250 240 / 240 2420 / 2420 Weight 97.5 kg Intake: IV 2420 / 2420 Aggrastat Inj 12,500 mcg In 250 170 / 170 ml @ Per Protocol IV.CONT .Q0M [facility] Rx#:[id number] Oral 240 / 240 Output: Urine 250 / 250 Other: # Voids 2 - Constitutional no acute distress - Routine Respiratory Exam Present: CTA bilaterally - Routine Cardiovascular Exam Present: RRR - Routine Abdominal Exam Present: soft - Routine Extremities Exam Comments: no pedal edema. - Routine Neurological Exam Present: alert, oriented X3 Results Procedures completed during hospitalization: cardiac cath. Labs on day of discharge: Labs from last 24 hours 06/22/18 06/21/18 04:14 09:25 Sodium 141 Potassium 3.9 Chloride 108 H Carbon Dioxide 27.0 Anion Gap 6 BUN 11 Creatinine 0.92 Estimated GFR 84 L Random Glucose 111 H Calcium 7.8 L Total Bilirubin 0.6 Direct Bilirubin 0.1 Indirect Bilirubin 0.5 AST 78 H ALT 40 Alkaline Phosphatase 66 Total Protein 7.2 Albumin 3.6 - Impressions ITS Impressions Chest X-Ray 06/20/18 19:41 CONCLUSION: Question of mild perivascular pulmonary venous congestion. Discharge Plan - Discharge Disposition Patient Disposition: 01 Discharge Home - Discharge Condition Condition: Stable - Physicians Team Primary Care Provider: UNKNOWN, Attending Provider: Vivek Posadas Other Providers: Monika Encarnacion MD ; Rodger Keys MD ; [employer]
[2018-06-22] MEDS ORDERED: Ramipril 2.5 MG Capsule PO SCH (09:00)
[2018-06-22 12:41] VITALS: BP 124/77; PULSE 79; TEMP 98.2
--- NOTE | 2018-06-22 13:07 | P.PNCA ---
Subjective Interval history: alert in nad Medications and Allergies Active Medications: Active Medications Aspirin (Aspirin Chew) 162 mg PO DAILY [facility] Last Admin: 06/22/18 08:53 Dose: 162 mg Atorvastatin Calcium (Lipitor) 40 mg PO HS [facility] Last Admin: 06/21/18 20:43 Dose: 40 mg Carvedilol (Coreg) 6.25 mg PO BID [facility] Last Admin: 06/22/18 08:53 Dose: 6.25 mg Cyclobenzaprine HCl (Flexeril) 5 mg PO Q8H PRN PRN Reason: muscle spasm Last Admin: 06/21/18 20:42 Dose: 5 mg Tirofiban/Sodium Chloride (Aggrastat Inj) 12,500 mcg in 250 mls @ 0 mls/hr IV.CONT .Q0M [facility]; Protocol Last Infusion: 06/22/18 07:45 Dose: Infused Miscellaneous (Pill Splitter) 1 each OTHER UNSCH PRN PRN Reason: PILL SPIT Prasugrel (Effient) 10 mg PO DAILY [facility] Last Admin: 06/22/18 08:54 Dose: 10 mg Ramipril (Altace) 2.5 mg PO DAILY [facility] Last Admin: 06/22/18 08:53 Dose: 2.5 mg Sodium Chloride (Ns Flush) 2 ml IV.FLUSH BID [facility] Last Admin: 06/22/18 08:55 Dose: 2 ml Sodium Chloride (Ns Flush) 2 ml IV.FLUSH PRN PRN PRN Reason: FLUSH AFTER USING IV ACCESS Allergies Allergy/AdvReac Type Severity Reaction Status Date / Time No Known Allergies Allergy Verified 06/20/18 19:44 Home Medications Medication Instructions Recorded Confirmed Type aspirin [Aspirin Low Dose] 81 mg PO DAILY 06/20/18 06/20/18 History cetirizine [Zyrtec] 5 mg PO DAILY 06/20/18 06/20/18 History omeprazole magnesium [Prilosec OTC] 1 PO DAILY 06/20/18 History Physical Exam Vital signs: Vital Signs 06/21/18 14:42 06/21/18 14:51 06/21/18 19:00 Temperature 98.3 F Pulse Rate 85 83 89 Respiratory Rate 20 Blood Pressure 135/83 Pulse Oximetry 06/21/18 20:00 06/21/18 23:00 06/22/18 00:00 Temperature 99.2 F 98.9 F Pulse Rate 89 81 82 Respiratory Rate 18 18 Blood Pressure 138/88 153/89 H Pulse Oximetry 95 96 06/22/18 03:00 06/22/18 04:00 06/22/18 07:00 Temperature 98.7 F Pulse Rate 72 83 69 Respiratory Rate 16 Blood Pressure 111/65 Pulse Oximetry 96 06/22/18 07:56 06/22/18 08:00 06/22/18 11:00 Temperature 98 F Pulse Rate 80 69 Respiratory Rate 16 Blood Pressure 138/86 Pulse Oximetry 95 95 06/22/18 12:00 Temperature 98.2 F Pulse Rate 79 Respiratory Rate 16 Blood Pressure 124/77 Pulse Oximetry 95 Intake & Output 06/21/18 06/22/18 06/22/18 18:59 06:59 18:59 Intake Total 240 / 240 2420 / 2420 Output Total 250 / 250 Balance -250 / -250 240 / 240 2420 / 2420 Weight 97.5 kg Intake: IV 2420 / 2420 Aggrastat Inj 12,500 mcg In 250 170 / 170 ml @ Per Protocol IV.CONT .Q0M [facility] Rx#:[id number] Oral 240 / 240 Output: Urine 250 / 250 Other: # Voids 2 Results 06/21/18 02:36 06/21/18 09:25 Cardiac Enzymes 06/20/18 06/20/18 06/21/18 Range/Units 19:40 19:40 02:36 AST 92 H (15-37) U/L CK-MB (CK-2) 7.8 H 91.3 H (0.5-3.6) ng/mL Troponin I 0.94 H* (0.02-0.05) ng/mL B-Natriuretic Peptide 38 (0-100) pg/mL 06/22/18 Range/Units 04:14 AST 78 H (15-37) U/L CK-MB (CK-2) (0.5-3.6) ng/mL Troponin I (0.02-0.05) ng/mL B-Natriuretic Peptide (0-100) pg/mL Coagulation 06/20/18 06/20/18 Range/Units 19:40 19:40 PT 10.0 (9.8-11.6) sec APTT 26.9 (24.3-30.1) sec B-Natriuretic Peptide 38 (0-100) pg/mL Lipids 06/20/18 06/21/18 Range/Units 19:40 02:36 Triglycerides 186 H 229 H (42-150) mg/dL Cholesterol 207 H 178 (120-200) mg/dL HDL Cholesterol 44.9 36.8 L (40.0-60.0) mg/dL Cholesterol/HDL Ratio 4.61 4.83 Ratio CBC 06/20/18 06/21/18 Range/Units 19:40 02:36 WBC 11.5 H 9.6 (4.0-11.0) th/mm3 RBC 5.62 4.83 (4.50-5.90) mil/mm3 Hgb 17.1 H 15.0 D (13.0-17.0) gm/dL Hct 51.0 43.4 (39.0-51.0) % Plt Count 251 210 (150-450) th/mm3 Neut # (Auto) 7.5 6.4 (1.8-7.7) th/mm3 Lymph # (Auto) 2.6 2.1 (1.0-4.8) th/mm3 [place] # (Auto) 1.1 H 0.9 (0.0-0.9) th/mm3 Eos # (Auto) 0.3 0.1 (0.0-0.4) th/mm3 Baso # (Auto) 0.1 0.0 (0.0-0.2) th/mm3 Comprehensive Metabolic Panel 06/20/18 06/21/18 06/21/18 Range/Units 19:40 02:36 09:25 Sodium 144 141 (136-145) meq/L Potassium 3.8 3.9 (3.5-5.1) meq/L Chloride 108 H 108 H (98-107) meq/L Carbon Dioxide 25.3 27.0 (21.0-32.0) meq/L BUN 11 11 (7-18) mg/dL Creatinine 0.85 0.92 (0.60-1.30) mg/dL Calcium 8.6 7.2 L* D 7.8 L (8.5-10.1) mg/dL Direct Bilirubin 0.2 (0.0-0.2) mg/dL Indirect Bilirubin 0.3 (0.0-0.8) mg/dL AST 92 H (15-37) U/L ALT 36 (12-78) U/L Alkaline Phosphatase 65 (45-117) U/L Total Protein 6.7 (6.4-8.2) g/dL Albumin 3.4 (3.4-5.0) g/dL 06/22/18 Range/Units 04:14 Sodium (136-145) meq/L Potassium (3.5-5.1) meq/L Chloride (98-107) meq/L Carbon Dioxide (21.0-32.0) meq/L BUN (7-18) mg/dL Creatinine (0.60-1.30) mg/dL Calcium (8.5-10.1) mg/dL Direct Bilirubin 0.1 (0.0-0.2) mg/dL Indirect Bilirubin 0.5 (0.0-0.8) mg/dL AST 78 H (15-37) U/L ALT 40 (12-78) U/L Alkaline Phosphatase 66 (45-117) U/L Total Protein 7.2 (6.4-8.2) g/dL Albumin 3.6 (3.4-5.0) g/dL Intake and Output 06/21/18 06/22/18 06/22/18 22:59 06:59 14:59 Intake Total 240 / 240 2420 / 2420 Output Total 250 / 250 Balance -250 / -250 240 / 240 2420 / 2420 Intake: IV 2420 / 2420 Aggrastat Inj 12,500 mcg In 250 170 / 170 ml @ Per Protocol IV.CONT .Q0M [facility] Rx#:[id number] Oral 240 / 240 Output: Urine 250 / 250 Other: # Voids 2 Weight 97.5 kg - Imaging and Cardiology Imaging: Impressions Chest X-Ray 06/20/18 19:41 CONCLUSION: Question of mild perivascular pulmonary venous congestion. Assessment and Plan - Assessment (1) ST elevation (STEMI) myocardial infarction Code(s): I21.3 - ST elevation (STEMI) myocardial infarction of unspecified site Status: Acute (2) CAD (coronary artery disease) Code(s): I25.10 - Atherosclerotic heart disease of [place] coronary artery without angina pectoris Status: Acute (3) Acute inferior myocardial infarction Code(s): I21.19 - ST elevation (STEMI) myocardial infarction involving other coronary artery of inferior wall Status: Acute - Plan 1.) CAD - pod # 2 primary pci bms mid rca, assymptomatic, continue aspirin, effient, add coreg, altace, started on lipitor, seen by Dr Encarnacion, sudha in am if stable and assymptomatic, ok to dc from cv standpoint, f/u with me 06/23/18 Progress Note: Quality - AMI Clinical Trial Participant: No
== END 2018-06-22 13:00 | disposition home or self-care (01) ==
LOC: NEPC 19:27 → NEDA 20:43 → HCVI 21:33 → HCPC 06-21 14:34
PROVIDERS: ADMIT Internal Medicine; ATTEND Internal Medicine